=== PATIENT | male | born 1965 | race Caucasian/White ===

== ENCOUNTER → 2018-01-12 | Outpatient (CLI) | payer OTHER | LOC: CAT 16:40 | DX: I62.9 Nontraumatic intracranial hemorrhage, unspecified (principal) ==

== ENCOUNTER → 2018-02-16 | Outpatient (CLI) | payer OTHER ==
[~2018-02-16] MED LIST: ASPIR 8181 MG PO; HYDROCHLOROTH12.5 M1 PO; LIPITOR40 MG PO; LISINOPRIL20 MG PO; OMEPRAZOLE 20 M20 M1 PO; TESTONE CI200 MG/1 M IM; XANAX 0.5 MG0.5 MG PO
[2018-02-16 13:45] VITALS: BP 131/87
[2018-02-16 14:25] VITALS: BP 129/82
[2018-02-16 16:29] LABS: HEMATOCRIT 51.9 % (42.0-52.0); HEMOGLOBIN 18.1 gm/dL (14.0-18.0)
== END ==
LOC: OPONC 02-15 10:51
PROVIDERS: Family Medicine
DX: D58.2 Other hemoglobinopathies (principal)
CPT/HCPCS: 95100

== ENCOUNTER → 2018-02-19 | Outpatient (CLI) | payer OTHER ==
[2018-02-19 08:55] VITALS: BP 147/81
[2018-02-19 09:00] LABS: HEMATOCRIT 52.4 % (42.0-52.0); HEMOGLOBIN 18.2 gm/dL (14.0-18.0)
[2018-02-19 09:53] VITALS: BP 149/74
== END ==
LOC: OPONC 07:15
PROVIDERS: Family Medicine
DX: E83.119 Hemochromatosis, unspecified (principal)
CPT/HCPCS: 95100

== ENCOUNTER → 2018-08-12 | Outpatient (CLI) | payer OTHER | LOC: CAT 09:29 | DX: J32.9 Chronic sinusitis, unspecified (principal); J34.2 Deviated nasal septum ==

== ENCOUNTER → 2019-03-16 | Outpatient (CLI) | payer OTHER ==
[~2019-03-16] VITALS: Ht 175.3 cm; Wt 129.3 kg
[~2019-03-16] MED LIST changes: +ALLOPURINOL 10100 M2 PO; +NABUMETONE 500500 M1 PO; +NEURONTIN 300300 M1 PO; +NORVASC 2.5 MG2.5 M1 PO; +TOPROL XL100 MG PO
[2019-03-16 13:15] VITALS: BP 131/90
--- NOTE | 2019-03-16 13:39 | NUR ---
Pain Clinic Assessment: 1. History of Osteoarthritis: History of Rheumatoid Arthritis: Not Applicable 2. Height: 5 ft. 9 in. 175.3 cm. Weight: 285.0 lb. oz. 129.276 kg. Patient's BMI: 42.1 3. Vital Signs: BP: 131/90 Pulse: 70 Resp: 16 Temp: 02 Sat: 97 ECG Mon: 4. Pain Intensity: 4 5. Fall Risk: Dizziness: Y Needs help standing or walking: N Fallen in the last 3 months: N Fall risk comments: 6. Patient on Blood Thinner: None 7. History of Hypertension: Y 8. Opioid Therapy greater than 6 weeks: N Opiate Contract Signed: 9. Risk Assessment Tool Provided: LOW RISK 04/15 10. Functional Assessment Tool: 11. Recreational Drug Use: Never Drug Type: Tobacco Use: Never Smoker Tobacco Type: Amount or Packs/day: How Many Years: Alcohol Use: Yes Frequency: Daily Quant: 3
--- NOTE | 2019-03-22 12:56 | HPC ---
[facility] [place] [address] PAIN MANAGEMENT CONSULTATION Name: PEDROENRICO Tarik SABA Room #: REG [facility]#: [id number] Admission: 03/16/19 Attend Phys: German Spears DO Discharge: Date of : 65 Report #: [id number] THIS REPORT FOR: //name// CC: German Horvath MD DATE OF SERVICE: 03/16/2019 REFERRING PHYSICIAN: Dr. Naeem Horvath. CHIEF COMPLAINT: Low back pain, bilateral lower extremity pain. HISTORY OF PRESENT ILLNESS: As you know, the patient is a very pleasant 53-year-old morbidly obese male, who reports acute onset of low back pain and inner thigh pain bilaterally that began on 01/03/2019. The patient indicates no inciting injury or trauma that may have led to symptom occurrence. He states that the pain intensified over the next couple of weeks. He sought chiropractic manipulation x 4, which unfortunately was unhelpful. He has not undergone any formalized physical therapy, but is currently participating in stretching and core strengthening exercises that were physician-directed at home. He states that he has trialled medication management in the past, specifically gabapentin, but did not reach any efficacious level. He sought further evaluation through his primary care physician who ultimately sent the patient for imaging, which showed some changes at the L3-L4 level concerning for pathology significant enough that interventional treatments may be necessary and the patient was subsequently referred to our clinic. The patient indicates pain today is continuous, describes the pain as aching, places current pain score 4/10, daily average at 6/10, worst pain has been 8/10. The patient says walking and standing exacerbate symptoms, nothing tends to improve pain. He has been referred to our service to discuss treatment options for suspected lumbar radiculopathy. PAST MEDICAL HISTORY: 1. Hemophilia. 2. Hypertension. 3. Emotional problems. 4. Degenerative joint disease. 5. Osteoarthritis. 6. History of stroke with no residual deficits and no required anticoagulation. PAST SURGICAL HISTORY: 1. Appendectomy. 2. Eye surgery. 3. Repeat eye surgery. [facility] [address] [place] [address] PAIN MANAGEMENT CONSULTATION Name: ENRICO VASQUEZ Room #: REG [facility]#: [id number] Admission: 03/16/19 Attend Phys: German Spears DO Discharge: Date of : 65 Report #: [id number] 4. Left rotator cuff surgery. 5. Septoplasty. SOCIAL HISTORY: The patient denies tobacco, IV or illicit drug use. Admits to 3 alcoholic beverages per day. 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 He is receiving disability income. He is not in litigation in regards to pain. He is unaccompanied at today's visit. REVIEW OF SYSTEMS: Positive for fatigue and weakness, frequent and recurrent headaches, eye disease, wearing corrective eyewear, blurred and double vision, earaches with drainage, sore throat with voice changes, shortness of breath with walking or lying flat, frequent and recurrent coughs, frequent urination, nocturia, sexual difficulty, varicose veins, frequent and recurrent headaches, lightheadedness and dizziness, numbness and tingling sensations, history of stroke, nervousness, depression, insomnia, morbid obesity. All other review of systems negative per 12-point review of systems and those listed in history of present illness. Pain impact score 38 of 70 indicating moderate interference of daily activities secondary to pain. ALLERGIES: No known drug allergies. CURRENT MEDICATIONS: Metoprolol 100 mg once a day, amlodipine 2.5 mg once a day, allopurinol 100 mg once a day, testosterone 2 mL intramuscular, hydrochlorothiazide 12.5 mg daily, lisinopril 20 mg per day, atorvastatin 40 mg per day, alprazolam 0.5 mg 3 times a day, omeprazole 20 mg once a day, aspirin 81 mg once a day. IMAGING: MRI lumbar spine obtained on 03/01/2019 shows L1-L2 essentially unremarkable; L2-L3 essentially unremarkable; L3-L4, mild right, minimal left degenerative changes, minimal trace annular bulge without herniation; central canal stenosis or neural foraminal narrowing. Right foraminal area shows moderate narrowing of the anterior inferior lateral foramen with encroachment on the L3 nerve root. There are L4-L5 mild facet degenerative changes, evidence of disk herniation. Central canal stenosis is not noted. No significant foraminal narrowing. L5-S1 transitional L5 vertebral body with rudimentary L5-S1 disk. No herniation, central canal stenosis or neural foraminal stenosis. PHYSICAL EXAMINATION: VITAL SIGNS: Blood pressure 131/90, pulse 70, respiratory rate 16 and unlabored. The patient is 97% on room air. Height 5 feet 9 inches tall, weight 285 pounds, BMI calculated 42.1. GENERAL: Well-developed, well-nourished, well-hydrated, class 3, morbidly obese 53-year-old male, appears stated age, placing current pain score at around 4/10. HEENT: Normocephalic, atraumatic. Pupils equal, round and reactive to light. [address] [address] PAIN MANAGEMENT CONSULTATION Name: ENRICO VASQUEZ JR Room #: REG [facility] Makayla#: [id number] Admission: 03/16/19 Attend Phys: German Spears DO Discharge: Date of : 65 Report #: [id number] Extraocular muscles are intact. Sclerae nonicteric without injection. NEUROLOGIC: Cranial nerves 2-12 grossly intact. Speech is fluent. The patient deemed a good historian. LUNGS: Clear. No wheezes, rhonchi or rales. CARDIOVASCULAR: Regular. No appreciable gallop or rub. ABDOMEN: Soft, obese, normoactive bowel sounds. EXTREMITIES: Show no clubbing, no cyanosis and no edema. MUSCULOSKELETAL: Lower extremity strength is symmetrical 5/5. He is intact to light touch from L1 through S2 dermatomes. Seated straight leg raising negative. Supine straight leg raising negative. Scott's test is negative. Modified Gaenslen's positive for some axial low back pain. Ankle clonus is negative. Babinski is negative. There is mild tenderness to palpation over the lumbar spine. No spinous process tenderness. Muscle bulk and tone is symmetrical in lower extremities. A lumbar provocation testing is met with some increased axial back pain, no radiation of symptoms. ASSESSMENT: 1. Chronic low back pain. 2. Suspected lumbar radiculopathy. 3. Mild facet arthropathy of the lumbar spine. 4. Chronic intractable pain. PLAN: 1. The patient has been referred to our service for back pain that began spontaneously without inciting injury or trauma on 01/03/2019. Apparently, this has not been responsive to conservative treatment options, though the patient has not had any formalized physical therapy. He is under physician direction with stretching exercises and some mild core strengthening techniques at home. He has not been provided a dietary change per the patient to address his excessive weight, which is compounding his current axial back problem. We reviewed the patient's MRI and pleased to advise the patient that the imaging shows no significant neural foraminal impingement or central canal impingement. There are some changes at the L3-L4 level potentially affecting the right L3 nerve root, for which the patient's pain may be attributable to on the right side, but does not correlate to his left-sided symptoms. We discussed with the patient the treatment options we have available for chronic axial back pain with possible radiculopathy and following was discussed with the patient today: We discussed physical therapy, stretching exercises, core strengthening and a concerted effort at weight loss via a formalized program that the patient will attend twice a week for at least 6-8 weeks. This would be the goal standard treatment for the patient's current symptomology. We discussed medication management as a way to control symptoms as he participates in this more active physical program. These medications would include neuropathic pain medication and anti-inflammatory medication. We discussed the possibility of having the patient undergo an epidural injection. This is the reason the patient was referred to our services and we also discussed the surgical options, though at [address] [address] PAIN MANAGEMENT CONSULTATION Name: ENRICO VASQUEZ Room #: [facility] Tate#: [id number] Admission: 03/16/19 Attend Phys: German Spears DO Discharge: Date of : 65 Report #: [id number] this point, the patient is not a candidate for surgery as there is no specific pathology that would be attributed to his current pain. After reviewing the risks and benefits of all proposed treatment options, the patient chose to initiate medication therapy and begin some core strengthening and more concerted effort at weight loss at home. If this is unsuccessful, then he would look towards a possible lumbar epidural injection. I did advise the patient that lumbar epidural injections do require authorization and he will need to gain this authorization before we could undergo that procedure. 2. The patient will be started on nabumetone 500 mg dose, this will take place of all other nonsteroidal anti-inflammatories. I have given him 500 mg tablets #90 to take 3 times a day with meals. He is to watch for side effects of dyspepsia, worsening blood pressure, lower extremity edema with use of medication. If he notes any side effects, discontinue immediately. If no side effects, continue the medication as directed, assuming good efficacy. I have given the patient this prescription with 2 refills. 3. The patient was provided a prescription of gabapentin 300 mg dose. He will start 1 tab p.o. at bedtime for 3 nights, then 2 tabs p.o. at bedtime for 3 nights, then 3 tabs p.o. at bedtime for 3 nights. No improvement in symptoms, no side effects, then begin the titration in the morning, escalating to 900 mg b.i.d. if necessary. The patient was given 180 tablets with 2 refills, 3 months' worth of medication. The patient was advised to watch for side effects of sleepiness, disorientation, confusion, mental slowing with the medication. If he notes any side effects, reduce to the dose prior and contact our clinic. 4. We will see the patient back in followup visit in approximately 30 days. At that time, review the efficacy of the medication provided and determine if any other changes need to be made. If the patient wishes to return to undergo a lumbar epidural injection, he will need to do so initially as a consultation. We will then gain authorization and the patient then could undergo an epidural injection. He will make that appointment if necessary. We do have a standing appointment for the patient to return for discussion of medications. Once stabilized on this medication, we will be returning his care to his PCP to continue the therapy. 5. We wish to thank Dr. Horvath for the referral of patient to our clinic. We will keep you apprised of his response to treatment. Thank you again for the opportunity to see this patient. <ELECTRONICALLY SIGNED> By: German Spears DO 03/22/19 [phone] [id number] German Spears DO /nt
== END ==
LOC: PAIN 07:11
DX: M54.5 Low back pain (principal); M12.88 Other specific arthropathies, not elsewhere classified, other specified site; G89.4 Chronic pain syndrome

== ENCOUNTER → 2019-04-19 | Outpatient (CLI) | payer OTHER ==
[~2019-04-19] VITALS: Ht 175.3 cm; Wt 131.5 kg
[2019-04-19 11:24] VITALS: BP 139/92
--- NOTE | 2019-04-19 11:36 | NUR ---
Pain Clinic Assessment: 1. History of Osteoarthritis: DENIES History of Rheumatoid Arthritis: YES 2. Height: 5 ft. 9 in. 175.3 cm. Weight: 289.8 lb. oz. 131.453 kg. Patient's BMI: 42.8 3. Vital Signs: BP: 139/92 Pulse: 66 Resp: 16 Temp: 02 Sat: 96 ECG Mon: 4. Pain Intensity: 6 5. Fall Risk: Dizziness: Y Needs help standing or walking: N Fallen in the last 3 months: N Fall risk comments: 6. Patient on Blood Thinner: None 7. History of Hypertension: Y 8. Opioid Therapy greater than 6 weeks: N Opiate Contract Signed: 9. Risk Assessment Tool Provided: LOW RISK 04/15 10. Functional Assessment Tool: 11. Recreational Drug Use: Never Drug Type: Tobacco Use: Never Smoker Tobacco Type: Amount or Packs/day: How Many Years: Alcohol Use: Yes Frequency: Daily Quant: 2 DRINKS A NIGHT
--- NOTE | 2019-04-20 12:54 | HPC ---
[facility] [place] [address] [place] [place] [address] PAIN MANAGEMENT CONSULTATION Name: PEDROENRICO Tarik SABA Room #: REG [facility]#: [id number] Admission: 04/19/19 Attend Phys: German Spears DO Discharge: Date of : 65 Report #: [id number] THIS REPORT FOR: //name// CC: German Horvath MD DATE OF SERVICE: 04/19/2019 REFERRING PHYSICIAN: Dr. Horvath. CHIEF COMPLAINT: Low back pain, bilateral lower extremity pain. HISTORY OF PRESENT ILLNESS: As you know, the patient is a very pleasant 53-year-old morbidly obese male who has an acute onset of low back pain, inner thigh pain that began on 01/03/2019. He indicates no injury or trauma though have led to symptoms. He was seen in consultation per the request of Dr. Horvath on 03/16/2019 and diagnosed with suspected lumbar radiculopathy and mild facet arthropathy of the lumbar spine. He trialled conservative treatment options utilizing gabapentin and nabumetone, but did not initiate the gabapentin therapy as he had been on the medication in the past and did not feel it was beneficial, though I am confident the patient was underdosed with the medication. He did trial the nabumetone, which he states provided only minimal improvement. He returns today in followup visit to undergo a lumbar epidural injection under fluoroscopic guidance for which we have received authorization. He denies injury or trauma since our visit of 03/16/2019. ALLERGIES: No known drug allergies. CURRENT MEDICATIONS: Metoprolol, amlodipine, allopurinol, testosterone, hydrochlorothiazide, lisinopril, atorvastatin, alprazolam, omeprazole, aspirin. SOCIAL HISTORY: The patient denies tobacco, IV or illicit drug use. Admits to 3 alcoholic beverages per day. 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 He is on disability. He is unaccompanied today. IMAGING: No new imaging available. PHYSICAL EXAMINATION: VITAL SIGNS: Blood pressure 139/92, pulse 66, respiratory rate 16 and unlabored. The patient is 96% on room air. Height 5 feet 9 inches tall, weight 209.8 pounds, BMI calculated 42.8. GENERAL: Well-developed, well-nourished, well-hydrated, class 3, morbidly obese 53-year-old male appearing stated age, placing current pain score 6/10. HEENT: Normocephalic, atraumatic. Pupils equal, round, reactive to light. [address] [address] PAIN MANAGEMENT CONSULTATION Name: ENRICO VASQUEZ Room #: REG [facility]#: [id number] Admission: 04/19/19 Attend Phys: German Spears DO Discharge: Date of : 65 Report #: [id number] EXTREMITIES: Show no clubbing, no cyanosis, and no edema. MUSCULOSKELETAL: Lower extremity strength remains symmetrical 5/5. Intact to light touch from L1 through S2 dermatomes. Scott's test remains negative. Modified Gaenslen's positive for some axial low back pain, no radiation of symptoms. Seated straight leg raising negative. Supine straight leg raising negative. ASSESSMENT: 1. Suspected lumbar radiculopathy. 2. Facet arthropathy of the lumbar spine. 3. Lumbosacral spondylosis with radicular symptoms. 4. Chronic intractable pain. PLAN: 1. The patient returns today in followup visit indicating that he did not initiate gabapentin therapy as provided at last visit as he has been on the medication in the past. States the medications did not provide improvement in symptoms, though I am confident that the patient did not receive a successful trial of the medication. We did discuss escalating this dose, but he is unwilling to initiate this therapy at this time. He returns today requesting an epidural injection. 2. The patient was advised risks and benefits of a lumbar epidural injection. These risks include but are not necessarily limited to bleeding, bruising, infection, worsening pain, no relief of pain, also risk of temporary or permanent muscle weakness, temporary or permanent nerve damage, possible paralysis, post-dural puncture headache or . The patient states understood and wished to proceed. 3. No medication changes made at today's visit. The patient will continue current medical therapy as prior prescribed. 4. We will see the patient back in followup visit on an as needed basis for possible next in the series of epidural injections. PROCEDURE NOTE DESCRIPTION OF PROCEDURE: L5-S1 intralaminar epidural steroid injection under fluoroscopic guidance. This is the first procedure of the first series that the patient is undergoing. After obtaining written consent, the patient was taken back to the fluoroscopy suite, placed in a prone position with pillow under the abdomen to decrease lumbar lordosis. The skin overlying the lumbosacral area was then prepped and draped in aseptic fashion. The L5-S1 vertebral interspace was then identified by AP fluoroscopy. The skin and subcutaneous tissue overlying the target site of injection was anesthetized with 3 mL 1% lidocaine. A 20 gauge 3.5 inch Tuohy needle was then advanced under fluoroscopic guidance [address] [address] PAIN MANAGEMENT CONSULTATION Name: ENRICO VASQUEZ JR Room #: REG [facility]#: [id number] Admission: 04/19/19 Attend Phys: German Spears DO Discharge: Date of : 65 Report #: [id number] towards the epidural space using a parasagittal approach. The epidural space was identified using loss of resistance to air technique. After negative aspiration for heme or cerebrospinal fluid, a total of 1 mL of Omnipaque was injected. A lumbar epidurogram was confirmed using both AP and lateral fluoroscopy. After negative aspiration for heme or cerebrospinal fluid, 5 mL of a solution containing 2 mL 40 mg per mL, 80 mg total triamcinolone along with 3 mL of lidocaine 1% was injected in increments. Contrast spread was noted posterior epidural space. The needle was then retracted approximately half way and needle tract flushed with 1 mL of 1% lidocaine. Needle was then removed. There were no apparent sensory or motor deficits in the lower extremity following the procedure. A sterile bandage was placed over the injection site. The heart rate, pulse, oximetry and blood pressure were continuously monitored after the procedure. There were no apparent complications. The patient tolerated the procedure well and was carefully escorted to the recovery room in stable condition. There were no apparent complications. After meeting discharge criteria, the patient was then discharged home. <ELECTRONICALLY SIGNED> By: German Spears DO 04/20/19 [id number] German Spears, /nt
== END | disposition home or self-care (01) ==
LOC: PAIN 06:57
DX: M47.27 Other spondylosis with radiculopathy, lumbosacral region (principal); M12.88 Other specific arthropathies, not elsewhere classified, other specified site; G89.29 Other chronic pain; Z79.899 Other long term (current) drug therapy; Z98.890 Other specified postprocedural states; Z79.82 Long term (current) use of aspirin

== ENCOUNTER → 2019-08-30 | Outpatient (CLI) | payer OTHER ==
[~2019-08-30] VITALS: Ht 175.3 cm; Wt 124.8 kg
[2019-08-30 09:36] VITALS: BP 117/83
--- NOTE | 2019-08-30 09:47 | NUR ---
Pain Clinic Assessment: 1. History of Osteoarthritis: BACK History of Rheumatoid Arthritis: YES 2. Height: 5 ft. 9 in. 175.3 cm. Weight: 275.2 lb. oz. 124.830 kg. Patient's BMI: 40.6 3. Vital Signs: BP: 117/83 Pulse: 70 Resp: 16 Temp: 02 Sat: 98 ECG Mon: 4. Pain Intensity: 8 5. Fall Risk: Dizziness: N Needs help standing or walking: N Fallen in the last 3 months: N Fall risk comments: 6. Patient on Blood Thinner: None 7. History of Hypertension: Y 8. Opioid Therapy greater than 6 weeks: N Opiate Contract Signed: 9. Risk Assessment Tool Provided: LOW RISK 04/15 10. Functional Assessment Tool: 11. Recreational Drug Use: Never Drug Type: Tobacco Use: Never Smoker Tobacco Type: Amount or Packs/day: How Many Years: Alcohol Use: Yes Frequency: Monthly Quant: 1
--- NOTE | 2019-08-30 15:39 | HPC ---
[facility] [place] [address] PAIN MANAGEMENT CONSULTATION Name: ENRICO VASQUEZ JR Room #: [facility]#: [id number] Admission: 08/30/19 Attend Phys: German Spears DO Discharge: Date of : 65 Report #: [id number] THIS REPORT FOR: cc: Naeem Horvath MD, Neal A. MD Johnson, James E. DO ~ DATE OF SERVICE: 08/30/2019 REFERRING PHYSICIAN: Naeem Horvath MD CHIEF COMPLAINT: Low back pain, bilateral lower extremity pain, left greater than right. HISTORY OF PRESENT ILLNESS: As you know, the patient is a very pleasant 53-year-old morbidly obese male who had acute onset of low back pain, inner thigh pain that began 01/03/2019. At that time, the patient was denying injury or trauma. He was seen in consultation per the request of Dr. Horvath in 03/2019 diagnosed with suspected lumbar radiculopathy and mild facet arthropathy. He trialled conservative treatment. He returned to our clinic in April and underwent the first in a series of lumbar epidural injections. He reports with that injection he received 80% improvement in overall pain lasting for nearly 3 months. He states he was able to stand and walk for longer periods of time without pain. Unfortunately, his symptoms have begun to return, mainly on the left side today. He returns in followup to undergo next in the series of epidural injections to address recurrent 8/10 pain. ALLERGIES: No known drug allergies. CURRENT MEDICATIONS: Nabumetone, metoprolol, amlodipine, allopurinol, testosterone, hydrochlorothiazide, lisinopril, atorvastatin, alprazolam, omeprazole, and aspirin. SOCIAL HISTORY: The patient denies tobacco, IV or illicit drug use. Admits to 3 alcoholic beverages per day. He was employed as an injection lens molding equipment operator. He has been out of work about 14 years. He has been on disability. He is unaccompanied today. IMAGING: No new imaging available. PHYSICAL EXAMINATION: VITAL SIGNS: Blood pressure 117/83, pulse is 70, respiratory rate 16 and unlabored. The patient is 98% on room air. Height 5 feet 9 inches tall, weight 275.2 pounds, BMI calculated 40.6. GENERAL: Well-developed, well-nourished, well-hydrated, morbidly obese 53-year-old male appearing his stated age, pain is rated today 8/10. [address] [address] PAIN MANAGEMENT CONSULTATION Name: ENRICO VASQUEZ Tarik SABA Room #: [facility]#: [id number] Admission: 08/30/19 Attend Phys: German Spears DO Discharge: Date of : 65 Report #: [id number] HEENT: Normocephalic, atraumatic. Pupils equal, round and reactive. NEUROLOGIC: Speech fluent. The patient deemed a good historian. EXTREMITIES: Show no clubbing, no cyanosis, and no edema. MUSCULOSKELETAL: Lower extremity strength remains symmetrical 5/5. Muscle bulk and tone is symmetrical in comparing left lower extremity to right. Seated straight leg raising negative. Supine straight leg raising is positive on the left. EFREM's test is negative. Modified Gaenslen's positive for axial low back pain. ASSESSMENT: 1. Lumbar radiculopathy. 2. Facet arthropathy of the lumbar spine. 3. Lumbosacral spondylosis with radicular symptoms. 4. Lumbar degeneration. 5. Chronic intractable pain. PLAN: 1. The patient returns today in followup visit having noted 80% improvement in overall pain with the epidural injection provided in April. The patient returns today with recurrence of symptoms, now reporting pain score of 8/10, mainly involving the low back and left lower extremity. He returns requesting the next in the series of epidural injections to build on success of previous intervention. The patient denies injury or trauma that may have led to symptom reoccurrence. The patient has been advised of the risks and benefits of a lumbar epidural injection and these risks include but are not necessarily limited to bleeding, bruising, infection, worsening pain, no relief of pain, also risk of temporary or permanent muscle weakness, temporary or permanent nerve damage, possible paralysis and . The patient states understood and wished to proceed. 2. No medication changes made at today's visit. The patient will continue current medical therapy as previously prescribed. 3. We will see the patient back in followup visit on an as needed basis for possible next in the series of epidural injections. We are hopeful the patient will see good and prolonged benefit with today's procedure. PROCEDURE NOTE DESCRIPTION OF PROCEDURE: L5-S1 left paramedian epidural steroid injection under fluoroscopic guidance. This is the second procedure of the first series that the patient is undergoing. After obtaining written consent, the patient was taken back to the fluoroscopy suite, placed in a prone position with pillow under the abdomen to decrease lumbar lordosis. The skin overlying the lumbosacral area was then prepped and draped in aseptic fashion. The L5-S1 vertebral interspace was then identified [address] [address] PAIN MANAGEMENT CONSULTATION Name: ENRICO VASQUEZ JR Room #: [facility]#: [id number] Admission: 08/30/19 Attend Phys: German Spears DO Discharge: Date of : 65 Report #: [id number] by AP fluoroscopy. The skin and subcutaneous tissue overlying the target site of injection was anesthetized with 3 mL 1% lidocaine. A 20-gauge 3-1/2 inch Tuohy needle was then advanced under fluoroscopic guidance towards the epidural space using a left paramedian approach. The epidural space was identified using loss of resistance to air technique. After negative aspiration for heme or cerebrospinal fluid, a total of 1 mL of Omnipaque was injected. A lumbar epidurogram was confirmed using both AP and lateral fluoroscopy. After negative aspiration for heme or cerebrospinal fluid, 5 mL of a solution containing 2 mL 40 mg per mL, 80 mg total triamcinolone along with 3 mL of lidocaine 1% was injected in increments. Contrast spread was noted from posterior epidural space. The needle was then retracted approximately half way and needle tract flushed with 1 mL of 1% lidocaine. Needle was then removed. There were no apparent sensory or motor deficits in the lower extremity following the procedure. A sterile bandage was placed over the injection site. The heart rate, pulse, oximetry and blood pressure were continuously monitored after the procedure. There were no apparent complications. The patient tolerated the procedure well and was carefully escorted to the recovery room in stable condition. There were no apparent complications. After meeting discharge criteria, the patient was then discharged home. <ELECTRONICALLY SIGNED> By: German Spears DO 08/30/19 [id number] German Spears DO /luis
== END | disposition home or self-care (01) ==
LOC: PAIN 06:50
DX: M51.16 Intervertebral disc disorders with radiculopathy, lumbar region (principal); M47.27 Other spondylosis with radiculopathy, lumbosacral region; M47.26 Other spondylosis with radiculopathy, lumbar region; G89.29 Other chronic pain; E66.09 Other obesity due to excess calories; Z68.41 Body mass index [BMI] 40.0-44.9, adult; Z98.890 Other specified postprocedural states; Z79.899 Other long term (current) drug therapy

== ENCOUNTER → 2019-11-10 | Outpatient (CLI) | payer OTHER | LOC: ULTRA 10:38 | PROVIDERS: ATTEND Family Medicine | DX: M79.605 Pain in left leg (principal) ==